=== PATIENT | male | born 1960 | race Caucasian/White ===

== ENCOUNTER 2016-11-15 00:21 | Inpatient (IN) | payer OTHER ==
[~2016-11-15] VITALS: Ht 175.3 cm; Wt 101.9 kg
[2016-11-15] VITALS (14 sets, daily range): BP systolic 91–150; BP diastolic 54–93
[2016-11-15 01:01] LABS: HEMATOCRIT 36.1 % (38.0-50.0); MCH 30.3 PG (29.0-34.0); MCHC 36.3 G/DL (30.0-36.0); MCV 83.4 FL (86-99); MEAN PLAT.VOLUME 10.8 uM^3 (9.0-12.4); PLATELET COUNT 185 K/uL (156-360); RBC DIS.WIDTH-CV 12.4 % (11.8-14.6); RBC DIS.WIDTH-SD 37.5 % (39-53); RED BLOOD COUNT 4.33 M/uL (4.00-5.50); WHITE BLOOD COUNT 5.8 K/uL (4.1-10.2)
[2016-11-15 01:07] LABS: INTER. NORMALIZED RATIO 0.9; PROTHROMBIN TIME 9.8 SEC (10.2-12.9)
[2016-11-15 01:09] LABS: PTT 25.6 SEC (25-37)
[2016-11-15 01:10] LABS: CHLORIDE 95 mEq/L (99-109); POTASSIUM 4.2 mEq/L (3.7-5.4); SODIUM 132 mEq/L (136-147)
[2016-11-15 01:13] LABS: ANION GAP 17 MEQ/L (2-14)
[2016-11-15 01:14] LABS: TOTAL BILIRUBIN 0.4 mg/dL (0.0-1.0)
[2016-11-15 01:16] LABS: ALKALINE PHOSPHATASE 88 IU/L (3-129); GFR ESTIMATE (CALCULATED) > 59 mL/min/
[2016-11-15 01:17] LABS: UREA NITROGEN (BUN) 12 mg/dL (9-23)
[2016-11-15 01:19] LABS: CREATINE KINASE 53 IU/L (1-294); LIPASE 30 U/L (1.0-51.0); TOTAL CK 53 IU/L (1-294)
[2016-11-15 01:21] LABS: TROP-I INTERPRETATION NEGATIVE; TROPONIN-I 0.01 ng/mL (0.0-0.30)
[2016-11-15 01:26] LABS: CK-MB 1.2 ng/mL (0.0-4.9)
[2016-11-15 01:27] LABS: GLUCOSE 738 mg/dL (70-99)
[2016-11-15 02:08] LABS: ADD MIUA? NO; BILIRUBIN NEGATIVE; BLOOD NEGATIVE; COLOR COLORLESS ((YELLOW)); GLUCOSE (STRIP) >=500; KETONES 80; LEUKOCYTES NEGATIVE; NITRITE NEGATIVE; PROTEIN (STRIP) NEGATIVE; SPECIFIC GRAVITY 1.029 (1.000-1.030); UCUL ADDED? NO; UROBILINOGEN 0.2 MG/DL (0.2-1.0)
[2016-11-15 02:43] LABS: CARBON DIOXIDE (BICARBONATE) 22.5 MEQ/L (20-31)
[2016-11-15 04:55] LABS: POINT-OF-CARE METER ID UU13113702
[2016-11-15 05:30] LABS: POINT-OF-CARE METER ID UU14100415
[2016-11-15 07:10] LABS: POINT-OF-CARE METER ID UU14162636
[2016-11-15 07:20] LABS: Estimated Average Glucose 364 mg/dL (70-123); HEMOGLOBIN A1c (GLYCOHEMOGLOB) 14.3 % HGB (Below 5.7)
[2016-11-15 07:50] LABS: METH RESISTANT S AUREUS PCR NEGATIVE (NEGATIVE)
[2016-11-15 07:53] LABS: PROBE CHECK PASS; SPECIMEN PROCESSING CONTROL PASS
[2016-11-15 08:02] LABS: POINT-OF-CARE METER ID UU14174217; POINT-OF-CARE USER ID AGYTJR
[2016-11-15 08:54] LABS: ANION GAP 11 MEQ/L (2-14); CHLORIDE 106 MEQ/L (99-109); SAMPLE HEMOLYSIS CHECK 0; SAMPLE ICTERIC CHECK 0; SAMPLE LIPEMIA CHECK 0; UREA NITROGEN (BUN) 10 mg/dL (9-23)
[2016-11-15 08:56] LABS: GLUCOSE 182 mg/dL (70-99)
[2016-11-15 08:57] LABS: GFR ESTIMATE (CALCULATED) > 59 mL/min/; POTASSIUM 3.3 MEQ/L (3.7-5.4); SODIUM 140 MEQ/L (136-147)
[2016-11-15 09:06] LABS: POINT-OF-CARE METER ID UU14162636; POINT-OF-CARE USER ID AGYTJR
[2016-11-15 09:23] LABS: POINT-OF-CARE METER ID UU14174217
[2016-11-15 10:35] LABS: POINT-OF-CARE METER ID UU14162636; POINT-OF-CARE USER ID AGYTJR
[2016-11-15 11:29] LABS: POINT-OF-CARE METER ID UU14162636; POINT-OF-CARE USER ID AGYTJR
[2016-11-15 12:36] LABS: POINT-OF-CARE METER ID UU14174217
[2016-11-15 13:28] LABS: ANION GAP 7 MEQ/L (2-14); CHLORIDE 104 MEQ/L (99-109); GFR ESTIMATE (CALCULATED) > 59 mL/min/; GLUCOSE 138 mg/dL (70-99); POTASSIUM 3.3 MEQ/L (3.7-5.4); SAMPLE HEMOLYSIS CHECK 0; SAMPLE ICTERIC CHECK 0; SAMPLE LIPEMIA CHECK 0; SODIUM 138 MEQ/L (136-147); UREA NITROGEN (BUN) 8 mg/dL (9-23)
[2016-11-15 13:39] LABS: POINT-OF-CARE METER ID UU13113731; POINT-OF-CARE USER ID AGYTJR
[2016-11-15] MEDS ORDERED: DIAZEPAM10 MG PO (14:49)
[2016-11-15 14:58] LABS: POINT-OF-CARE METER ID UU13113731; POINT-OF-CARE USER ID AGYTJR
[2016-11-15] MEDS ORDERED: LOPRESSOR50 MG PO (15:04)
[2016-11-15] MEDS ORDERED: RANITIDINE HCL150 MG PO (15:04)
[2016-11-15] MEDS ORDERED: METRONIDAZOLE500 MG PO (15:04)
[2016-11-15] MEDS ORDERED: CIPROFLOXACIN500 M1 PO (15:04)
[2016-11-15] MEDS ORDERED: CHOLESTYRAMINE P4 GM PO (15:05)
[2016-11-15] MEDS ORDERED: VITAMIN B COMP1 EACH PO (15:05)
[2016-11-15] MEDS ORDERED: LOSARTAN-HCTZ1 EACH PO (15:05)
[2016-11-15] MEDS ORDERED: VITAMIN D2000 UNI1 PO (15:06)
[2016-11-15] MEDS ORDERED: GLIPIZIDE-METF1 EAC2 PO (15:07)
[2016-11-15 16:57] LABS: ANION GAP 10 MEQ/L (2-14); CHLORIDE 105 MEQ/L (99-109); GFR ESTIMATE (CALCULATED) > 59 mL/min/; POTASSIUM 3.4 MEQ/L (3.7-5.4); SAMPLE HEMOLYSIS CHECK 0; SAMPLE ICTERIC CHECK 0; SAMPLE LIPEMIA CHECK 0; SODIUM 135 MEQ/L (136-147); UREA NITROGEN (BUN) 8 mg/dL (9-23)
[2016-11-15 17:05] LABS: GLUCOSE 323 mg/dL (70-99)
[2016-11-15 18:11] LABS: POINT-OF-CARE METER ID UU13113731; POINT-OF-CARE USER ID AGYTJR
[2016-11-15 22:00] LABS: ANION GAP 10 MEQ/L (2-14); CHLORIDE 105 MEQ/L (99-109); POTASSIUM 3.6 MEQ/L (3.7-5.4); SAMPLE HEMOLYSIS CHECK 0; SAMPLE ICTERIC CHECK 0; SAMPLE LIPEMIA CHECK 1; SODIUM 137 MEQ/L (136-147)
[2016-11-15 22:05] LABS: GFR ESTIMATE (CALCULATED) > 59 mL/min/; GLUCOSE 313 mg/dL (70-99); UREA NITROGEN (BUN) 7 mg/dL (9-23)
[2016-11-15 23:58] LABS: POINT-OF-CARE METER ID UU13113731
[2016-11-16] VITALS: BP 140/87
[2016-11-16 00:55] LABS: POTASSIUM 3.4 mEq/L (3.7-5.4); SODIUM 138 mEq/L (136-147)
[2016-11-16 00:56] LABS: GLUCOSE 293 mg/dL (70-99)
[2016-11-16 00:58] LABS: ANION GAP 10 MEQ/L (2-14)
[2016-11-16 01:00] LABS: GFR ESTIMATE (CALCULATED) > 59 mL/min/
[2016-11-16 01:01] LABS: UREA NITROGEN (BUN) 8 mg/dL (9-23)
[2016-11-16 01:04] LABS: CHLORIDE 106 mEq/L (99-109)
[2016-11-16 02:34] LABS: POINT-OF-CARE METER ID UU13113731
[2016-11-16 04:00] VITALS: BP 128/84
[2016-11-16 05:23] LABS: CHLORIDE 105 mEq/L (99-109); POTASSIUM 3.3 mEq/L (3.7-5.4); SODIUM 138 mEq/L (136-147)
[2016-11-16 05:25] LABS: GLUCOSE 183 mg/dL (70-99)
[2016-11-16 05:26] LABS: ANION GAP 9 MEQ/L (2-14)
[2016-11-16 05:28] LABS: GFR ESTIMATE (CALCULATED) > 59 mL/min/
[2016-11-16 05:29] LABS: UREA NITROGEN (BUN) 7 mg/dL (9-23)
[2016-11-16 06:38] LABS: POINT-OF-CARE METER ID UU13113731
[2016-11-16 08:00] VITALS: BP 126/75
[2016-11-16 08:59] LABS: POINT-OF-CARE METER ID UU13113731
[2016-11-16 11:13] LABS: POINT-OF-CARE METER ID UU13113731
[2016-11-16 12:23] VITALS: BP 127/73
[2016-11-16 16:07] LABS: POINT-OF-CARE METER ID UU13113731
[2016-11-16 16:11] VITALS: BP 138/80
[2016-11-16 18:22] LABS: POINT-OF-CARE METER ID UU14162636
[2016-11-16 20:00] VITALS: BP 123/76
[2016-11-16 21:30] LABS: POINT-OF-CARE METER ID UU14162636
[2016-11-17] VITALS (7 sets, daily range): BP systolic 134–183; BP diastolic 75–108
[2016-11-17 01:30] LABS: POINT-OF-CARE METER ID UU13113748
[2016-11-17 06:01] LABS: POINT-OF-CARE METER ID UU13113748
[2016-11-17 06:03] LABS: MCH 29.1 PG (29.0-34.0); MCHC 34.7 G/DL (30.0-36.0); MCV 83.7 FL (86-99); MEAN PLAT.VOLUME 11.1 uM^3 (9.0-12.4); PLATELET COUNT 169 K/uL (156-360); RBC DIS.WIDTH-CV 12.9 % (11.8-14.6); RBC DIS.WIDTH-SD 38.6 % (39-53); RED BLOOD COUNT 4.06 M/uL (4.00-5.50); WHITE BLOOD COUNT 4.6 K/uL (4.1-10.2)
[2016-11-17 07:03] LABS: ANION GAP 8 MEQ/L (2-14); CHLORIDE 106 MEQ/L (99-109); GFR ESTIMATE (CALCULATED) > 59 mL/min/; GLUCOSE 175 mg/dL (70-99); POTASSIUM 3.6 MEQ/L (3.7-5.4); SAMPLE HEMOLYSIS CHECK 0; SAMPLE ICTERIC CHECK 0; SAMPLE LIPEMIA CHECK 0; SODIUM 139 MEQ/L (136-147); UREA NITROGEN (BUN) 5 mg/dL (9-23)
[2016-11-17 09:32] LABS: POINT-OF-CARE METER ID UU13113748
[2016-11-17 10:42] LABS: POINT-OF-CARE METER ID UU13113702
[2016-11-17 13:15] LABS: POINT-OF-CARE METER ID UU13113748
[2016-11-17 17:05] LABS: POINT-OF-CARE METER ID UU13113748
[2016-11-17 21:56] LABS: POINT-OF-CARE METER ID UU13113748
[2016-11-18] VITALS (7 sets, daily range): BP systolic 127–157; BP diastolic 65–84
[2016-11-18 06:32] LABS: ANION GAP 10 MEQ/L (2-14); CHLORIDE 103 MEQ/L (99-109); POTASSIUM 4.1 MEQ/L (3.7-5.4); SAMPLE HEMOLYSIS CHECK 0; SAMPLE ICTERIC CHECK 0; SAMPLE LIPEMIA CHECK 0; SODIUM 137 MEQ/L (136-147)
[2016-11-18 06:38] LABS: GFR ESTIMATE (CALCULATED) > 59 mL/min/; GLUCOSE 257 mg/dL (70-99); UREA NITROGEN (BUN) 6 mg/dL (9-23)
[2016-11-18 09:41] LABS: ADD MIUA? NO; BILIRUBIN NEGATIVE; BLOOD NEGATIVE; COLOR YELLOW ((YELLOW)); GLUCOSE (STRIP) >=500; KETONES 20; LEUKOCYTES NEGATIVE; NITRITE NEGATIVE; PROTEIN (STRIP) NEGATIVE; SPECIFIC GRAVITY 1.023 (1.000-1.030); UCUL ADDED? NO; UROBILINOGEN 0.2 MG/DL (0.2-1.0)
[2016-11-18 12:35] LABS: POINT-OF-CARE METER ID UU14188625
[2016-11-18 17:27] LABS: POINT-OF-CARE METER ID UU14188625
[2016-11-18 21:03] LABS: POINT-OF-CARE METER ID UU14188625
[2016-11-19 06:45] LABS: ANION GAP 10 MEQ/L (2-14); CHLORIDE 103 MEQ/L (99-109); GFR ESTIMATE (CALCULATED) > 59 mL/min/; GLUCOSE 241 mg/dL (70-99); POTASSIUM 4.1 MEQ/L (3.7-5.4); SAMPLE HEMOLYSIS CHECK 0; SAMPLE ICTERIC CHECK 0; SAMPLE LIPEMIA CHECK 0; SODIUM 138 MEQ/L (136-147); UREA NITROGEN (BUN) 8 mg/dL (9-23)
[2016-11-19 08:06] VITALS: BP 136/69
[2016-11-19 08:33] LABS: POINT-OF-CARE METER ID UU13113717
[2016-11-19 15:44] VITALS: BP 109/65
[2016-11-20 00:07] VITALS: BP 128/78
[2016-11-20 01:43] LABS: HEMATOCRIT 33.4 % (38.0-50.0); MCH 29.2 PG (29.0-34.0); MCHC 34.1 G/DL (30.0-36.0); MCV 85.6 FL (86-99); RBC DIS.WIDTH-CV 13.4 % (11.8-14.6); RBC DIS.WIDTH-SD 41.2 % (39-53); WHITE BLOOD COUNT 4.8 K/uL (4.1-10.2)
[2016-11-20 02:29] LABS: MEAN PLAT.VOLUME 10.3 uM^3 (9.0-12.4); PLAT.SUFFICIENCY ADEQUATE
[2016-11-20 02:30] LABS: PLATELET COUNT 118 K/uL (156-360)
[2016-11-20 07:53] LABS: ANION GAP 9 MEQ/L (2-14); CHLORIDE 104 MEQ/L (99-109); GFR ESTIMATE (CALCULATED) > 59 mL/min/; GLUCOSE 218 mg/dL (70-99); POTASSIUM 3.7 MEQ/L (3.7-5.4); SAMPLE HEMOLYSIS CHECK 0; SAMPLE ICTERIC CHECK 0; SAMPLE LIPEMIA CHECK 0; SODIUM 140 MEQ/L (136-147); UREA NITROGEN (BUN) 8 mg/dL (9-23)
[2016-11-20 08:12] LABS: POINT-OF-CARE METER ID UU14188625
[2016-11-20 08:28] VITALS: BP 119/62
[2016-11-20 16:03] VITALS: BP 127/68
[2016-11-20 23:44] VITALS: BP 110/59
[2016-11-21 07:37] VITALS: BP 113/62
[2016-11-21 08:22] LABS: POINT-OF-CARE METER ID UU14188625
[2016-11-21] MEDS ORDERED: LEVEMIR100 UNIT/2 SC (11:00)
[2016-11-21] MEDS ORDERED: KEFLEX500 MG PO (11:00)
[2016-11-21] MEDS ORDERED: TRAMADOL HCL50 MG PO (11:41)
[2016-11-21 12:16] LABS: POINT-OF-CARE METER ID UU14188625
[2016-11-21 16:45] VITALS: BP 136/79
[2016-11-21 21:02] LABS: POINT-OF-CARE USER ID 603211116
[2016-11-21 23:33] VITALS: BP 134/73
[2016-11-22 08:23] VITALS: BP 134/77
[2016-11-22 08:48] LABS: POINT-OF-CARE METER ID UU14188625
[2016-11-22 12:47] LABS: POINT-OF-CARE METER ID UU14188625
[2016-11-22 12:51] VITALS: BP 128/69
[2016-11-22 16:20] VITALS: BP 143/82
[2016-11-22 17:27] LABS: POINT-OF-CARE METER ID UU14188625
== END 2016-11-22 18:56 | disposition home or self-care (01) | DRG 638 ==
LOC: EME → EDBD 00:21 → 5SOUTH 04:28 → 4WEST 04:28 → EDOF 04:28 → 5SOUTH 04:28 → ENRESERV 04:29 → 4WEST 05:44 → ENRESERV 11-16 18:57 → 5SOUTH 11-18 10:14
PROVIDERS: Emergency Medicine; Hospitalist; Internal Medicine; Internal Medicine Pulmonary Disease
DX: E13.10 Other specified diabetes mellitus with ketoacidosis without coma (principal); N10 Acute pyelonephritis; I80.8 Phlebitis and thrombophlebitis of other sites; E87.6 Hypokalemia; E78.5 Hyperlipidemia, unspecified; I10 Essential (primary) hypertension; I25.10 Atherosclerotic heart disease of native coronary artery without angina pectoris; Z91.11 Patient's noncompliance with dietary regimen; R11.2 Nausea with vomiting, unspecified; M54.9 Dorsalgia, unspecified; M79.602 Pain in left arm; R06.00 Dyspnea, unspecified; R19.7 Diarrhea, unspecified; K21.9 Gastro-esophageal reflux disease without esophagitis; E66.9 Obesity, unspecified; Z68.33 Body mass index [BMI] 33.0-33.9, adult; Z94.7 Corneal transplant status; I25.2 Old myocardial infarction; Z87.891 Personal history of nicotine dependence
CPT/HCPCS: 71020; 74177; 80048; 80048 91; 80053; 81003; 82010; 82550; 82553; 82803; 82948; 83036; 83605; 83690; 83880; 84100; 84484; 85027; 85610; 85730; 86803; 87040; 87493; 87641; 93005; 93971; 99281; 99285; J0696; J1650; J1815; J7030; J7050